=== PATIENT | female | born 1960 | race American Indian/Alaskan Native ===

== ENCOUNTER 2016-12-10 06:51 | Day surgery (SDC) | payer MEDICARE ==
--- NOTE | 2016-12-10 07:31 | Anesthesia Consultation ---
Anesthesia Consult and Med Hx Date of service: 12/10/16 - Airway Anesthetic Teeth Evaluation: Good (multiple missing teeth) ROM Head & Neck: Adequate Mental/Hyoid Distance: Adequate Mallampati Class: Class II Intubation Access Assessment: Probably Good - Pre-Operative Health Status ASA Pre-Surgery Classification: ASA3 Proposed Anesthetic Plan: General - Pulmonary Hx Smoking: No - Cardiovascular System Hx Hypertension: Yes (FOR 20+ YRS, DR. KNOX- PCP) Hx Coronary Artery Disease: (high blood pressure) - Central Nervous System Hx Neuromuscular Disorder: Yes (lupus) Hx Psychiatric Problems: No - Endocrine Hx Insulin Dependent Diabetes: Yes Hx Hyperthyroidism: Yes - Hematic Hx Anemia: Yes Hx Sickle Cell Disease: Yes (TRAIT) - Other Systems Hx Cancer: Yes (LEFT BREAST, DX: 09/2016)
--- NOTE | 2016-12-10 07:32 | Anesthesia Day of Surgery ---
Anesthesia Day of Surgery - Day of Surgery Patient Examined: Yes Patient H&P Reviewed: Yes Patient is NPO: Yes
[2016-12-10] MEDS ORDERED: LACTATED RINGERS 1,000 ML IV SCH (08:00)
[2016-12-10] MEDS ORDERED: VERSED IV NR (08:00)
[2016-12-10] MEDS ORDERED: VANCOMYCIN/NS 1 GM/250 ML 250 ML IV NR (08:00)
[2016-12-10] MEDS ORDERED: PEPCID IV NR (08:00)
[2016-12-10] MEDS ORDERED: NACL 0.9% 1000 ML 1,000 ML ONE ×2 (08:08→10:55)
[2016-12-10] MEDS ORDERED: MARCAINE-EPI 0.5%-1:200,000 INFILTRATI ONE (08:15)
[2016-12-10] MEDS ORDERED: DECADRON ONE ×2 (08:15→08:55)
[2016-12-10] MEDS ORDERED: DIPRIVAN 10 MG/ML IV ONE (08:35)
[2016-12-10] MEDS ORDERED: XYLOCAINE MPF 2% ONE (08:36)
[2016-12-10] MEDS ORDERED: DILAUDID ONE (08:36)
[2016-12-10] MEDS ORDERED: XYLOCAINE 1% 20 mL ONE (08:38)
[2016-12-10] MEDS ORDERED: ZOFRAN ONE (08:55)
[2016-12-10] MEDS ORDERED: NEURONTIN PO NR (09:00)
[2016-12-10] MEDS ORDERED: NACL 0.9% 1000 ML 1,000 ML IV SCH (09:00)
[2016-12-10] MEDS ORDERED: WATER FOR IRRIG STERILE IR ONE (10:01)
[2016-12-10] MEDS ORDERED: METHYLENE BLUE IV ONE (10:01)
[2016-12-10] MEDS ORDERED: NACL P/F VIAL (10 ML) INFILTRATI ONE (10:04)
[2016-12-10] MEDS ORDERED: NEO SYNEPHRINE/NS Syringe(OR USE) IV ONE (10:31)
--- NOTE | 2016-12-10 11:29 | Short Stay Summary ---
Short Stay Documentation Date of service: 12/10/16 - History H&P: obtained from office - Allergies and Medications Current Medications: Allergies Penicillins Adverse Reaction (Severe, Verified 12/10/16 08:24) DIFFICULTY IN BREATHING Sulfa (Sulfonamide Antibiotics) Adverse Reaction (Severe, Verified 12/10/16 08: 24) DIFFICULTY IN BREATHING Home Medications Medication Instructions Recorded Confirmed Last Taken Type Hydroxychloroquine [Plaquenil] 200 mg PO QDAY 11/12/16 12/08/16 12/09/16 History Insulin Detemir [Levemir VIAL] 14 unit SQ QDAY 11/12/16 12/10/16 12/09/16 09:30 History 14 UNITS Lisinopril/Hydrochlorothiazide 1 tab PO QDAY 11/12/16 12/08/16 12/10/16 05:30 History [Zestoretic 20-12.5 mg] Prednisone [predniSONE (Leisa) ER 5 mg PO QDAY 11/12/16 12/08/16 12/10/16 05:30 History TAB] Simvastatin [Zocor TAB] 20 mg PO QHS 11/12/16 12/08/16 12/09/16 History Colchicine [Colcrys] 0.6 mg PO BID 11/17/16 12/08/16 12/09/16 History HYDROcodone/APAP 5-325 [[place] 1 each PO Q6HR PRN #25 tablet 12/10/16 Unknown Rx 5/325] Active Medications Famotidine (Pepcid) 20 mg IV PREOP NR Stop: 12/10/16 23:59 Last Admin: 12/10/16 08:20 Dose: 20 mg Gabapentin (Neurontin) 600 mg PO PREOP NR Stop: 12/10/16 17:00 Last Admin: 12/10/16 08:29 Dose: 600 mg Vancomycin HCl (Vancomycin/Ns 1 Gm/250 Ml) 250 mls @ 167 mls/hr IV PREOP NR PRN Reason: Protocol Stop: 12/10/16 23:59 Last Admin: 12/10/16 08:34 Dose: 167 mls/hr Sodium Chloride (Nacl 0.9% 1000 Ml) 1,000 mls @ 75 mls/hr IV DIRECT MICHEL Last Admin: 12/10/16 08:15 Dose: 75 mls/hr Methylprednisolone Sodium Succinate (Solu-Medrol) 125 mg IV PREOP NR Stop: 12/10/16 23:59 Last Admin: 12/10/16 08:17 Dose: 125 mg Midazolam HCl (Versed) 2 mg IV PREOP NR Stop: 12/10/16 23:59 Last Admin: 12/10/16 08:42 Dose: 2 mg - Brief post op/procedure progress note Date of procedure: 12/10/16 Pre-op diagnosis: Left breast cancer of the upper outer quadrant Post-op diagnosis: same Procedure: Left breast margin revision and sentinel lymph node biopsy Anesthesia: GETA Findings: Scar tissue noted of breast cavity with lateral margin revision performed; left sentinel lymph node biopsy with at least 1 lymph node identified with low counts Surgeon: LUIS ANGEL PAYTON Estimated blood loss: minimal Pathology: list (left lateral breast margin revision, left SLNB) Specimen disposition: to lab Condition: stable - Disposition Condition at discharge: Good Disposition: DISCHARGED TO HOME OR SELFCARE Short Stay Discharge Plan Activity: other (no heavy lifting) Diet: regular Wound: other ( may shower in 24 houirs; no baths, pools or lakes; do not rub or scrub incision) Follow up with: PIERCE KNOX MD [Primary Care Provider] - 7 Days LUIS ANGEL PAYTON MD [Staff Physician] - 7 Days Prescriptions: HYDROcodone/APAP 5-325 [[place] 5/325] 1 each PO Q6HR PRN #25 tablet PRN Reason: Pain
--- NOTE | 2016-12-10 11:40 | Operative Report ---
Operative Report Operative Report: Date of procedure: 12/10/2016 Pre-operative diagnosis: Left breast cancer of the upper outer quadrant with positive lateral margin and findings of microinvasive breast cancer Post-operative diagnosis: Same Procedure name(s): Left lateral breast margin revision of upper outer quadrant breast cancer and sent and left sentinel lymph node biopsy Surgeon: Rosana Sylvester M.D. Anesthesia: Gen. Findings: Scar tissue with fat necrosis noted of the left breast cavity from prior partial mastectomy with left lateral breast margin revision performed. Isotope injected of the left nipple with minimal uptake noted as well as methylene blue dye injected as well with no dye identified the time of surgery. He will counts noted from his lymph node identified. Complications: None Drains: None Disposition: PACU in good condition Indications for operative procedure: This is a 56-year-old lady with newly diagnosed left breast cancer of the upper outer quadrant, initially diagnosed with DCIS and she underwent a left partial mastectomy in October 2016 with findings of microinvasive breast cancer and lateral margin less than 1 mm from ductal carcinoma in situ. Recommendations were to proceed with from left lateral breast margin revision and sentinel lymph node biopsy. Patient wished to proceed with the above. Procedure in detail: Patient was taken to the operating room and was laid supine. Gen. anesthesia was administered. The nipple was injected with radioisotope. Left breast and axilla were prepped and draped in normal sterile operative fashion. Gamma probe was used to identify counts within the axilla with no counts identified and the nipple was then injected with 1 mL of blue dye with 2 mL of sterile normal saline. Minimal counts were noted. A skin incision was then made at the prior left lateral breast skin incision with a 15 blade knife with dissection taken down to the subcutaneous tissues with the aid of the Bovie cautery. Seroma cavity was encountered that was appropriately suctioned. The nipple was massaged. Low counts were identified of the axilla. Procedure first began with performing of left lateral margin revision with Allis clamps placed on the tissue of concern that was appropriately excised using the Bovie cautery, marked and then sent to pathology. Gamma probe was inserted into axilla with 2 areas identified with very low counts that were excised and identified as sentinel lymph node 1 and 2 that was sent to pathology. No blue dye was noted within the axilla. Hemostasis was then obtained using the Bovie cautery. Breast cavity was irrigated and suctioned. The subcutaneous tissues were approximated and closed with interrupted 3-0 Vicryl and skin closed with interrupted 3-0 Vicryl followed by running 4-0 Monocryl and skin affix. The patient was awakened from anesthesia without any complication and transferred to PACU in good condition.
--- NOTE | 2016-12-10 12:24 | Post Anesthesia Evaluation ---
- Post Anesthesia Evaluation Patient Participated: Yes Airway Patent: Yes Stable Respiratory Function: Yes Nausea/Vomiting: No Temp > 96.8F: Yes Pain Manageable: Yes Adequeate Hydration: Yes Anesthesia Complications: No
[2016-12-10 15:00] VITALS: BP 136/74
--- NOTE | 2016-12-11 13:44 | Progress Note ---
Subjective Date of service: 12/11/16 Interval history: 1st POD after left breast surgery Patient has been discharged by the surgeon in the good condition
== END 2016-12-10 14:15 | disposition home or self-care (01) ==
LOC: OR 06:51
PROVIDERS: ATTEND Surgery
DX: C50.412 Malignant neoplasm of upper-outer quadrant of left female breast (principal); N64.1 Fat necrosis of breast; I10 Essential (primary) hypertension; E03.9 Hypothyroidism, unspecified; D57.3 Sickle-cell trait; E11.22 Type 2 diabetes mellitus with diabetic chronic kidney disease; N18.4 Chronic kidney disease, stage 4 (severe); M10.471 Other secondary gout, right ankle and foot; E11.40 Type 2 diabetes mellitus with diabetic neuropathy, unspecified; Z83.3 Family history of diabetes mellitus; Z90.12 Acquired absence of left breast and nipple; Z84.1 Family history of disorders of kidney and ureter; Z82.49 Family history of ischemic heart disease and other diseases of the circulatory system; Z80.3 Family history of malignant neoplasm of breast
CPT/HCPCS: 11404; 11406; 38525; 64450; 78800; 82962; 88305; 88307; 88341; 88342; A9541; J1100; J1170; J2250; J2370; J2405; J2704; J2930; J3370; J7030; Q9968; 88333

== ENCOUNTER 2020-10-08 08:19 | Outpatient (CLI) | payer MEDICARE ==
--- NOTE | 2020-10-08 09:42 | Mammography Report ---
DIGITAL SCREENING MAMMOGRAM WITH TOMOSYNTHESIS WITH CAD, 10/08/2020 CLINICAL INFORMATION / INDICATION: Routine Screening Mammography. TECHNIQUE: Digital bilateral 2D and 3D mammography with tomosynthesis was obtained in the craniocaud al and mediolateral oblique projections. Computer-Aided Detection (CAD) analysis was used for interp retation of this study. COMPARISON: 10/07/2019, 09/13/2018 FINDINGS: Breast Density: There are scattered areas of fibroglandular density. No dominant mass, suspicious calcifications, or architectural distortion in either breast. There are stable postoperative changes posteriorly along the upper outer quadrant of the left breast. IMPRESSION: No mammographic evidence of malignancy. Follow up recommendation: Routine yearly BI-RADS Category 2: Benign. A "normal" or negative report should not discourage follow up or biopsy of a clinically significant f inding. A written summary of these findings will be mailed to the patient. The patient will be entered into a mammography reporting system which will generate a reminder letter for the patient's next appointmen t at the appropriate interval. The [employer] recommends yearly mammograms starting at age 40 and continuing as l jane as a woman is in good health. Breast MRI is recommended for women with an approximate 20-25% or greater lifetime risk of breast cancer, including women with a strong family history of breast or ova allegra cancer or who have been treated for Hodgkin's disease. Signer Name: Edmond Dorado MD Signed: 10/08/2020 9:37 AM Workstation Name: [email or web address]
== END 2020-10-08 08:20 | disposition home or self-care (01) ==
LOC: SPVWC 08:19
PROVIDERS: ATTEND Surgery
DX: Z12.31 Encounter for screening mammogram for malignant neoplasm of breast (principal)
CPT/HCPCS: 77063; 77067

== ENCOUNTER 2021-11-08 08:53 | Outpatient (CLI) | payer MEDICARE ==
--- NOTE | 2021-11-08 18:05 | Mammography Report ---
DIGITAL SCREENING MAMMOGRAM WITH CAD, 11/08/2021 CLINICAL INFORMATION / INDICATION: Routine screening mammography. TECHNIQUE: Digital bilateral 2D mammography was obtained in the craniocaudal and mediolateral obliqu e projections. This examination was interpreted with the benefit of Computer-Aided Detection analysis . COMPARISON: 10/08/2020, 10/07/2019 FINDINGS: Breast Density: There are scattered areas of fibroglandular density. No dominant mass, suspicious calcifications, or architectural distortion in either breast. Postlumpectomy changes are again noted in the upper outer left breast. Prominent right axillary lymph node is present unchanged for multiple older mammograms. Overall, no s ignificant interval change in the appearance of the mammogram. IMPRESSION: No mammographic evidence of malignancy. Follow up recommendation: Routine yearly BI-RADS Category 2: Benign. A "normal" or negative report should not discourage follow up or biopsy of a clinically significant f inding. A written summary of these findings will be mailed to the patient. The patient will be entered into a mammography reporting system which will generate a reminder letter for the patient's next appointmen t at the appropriate interval. The [employer] recommends yearly mammograms starting at age 40 and continuing as l jane as a woman is in good health. Breast MRI is recommended for women with an approximate 20-25% or greater lifetime risk of breast cancer, including women with a strong family history of breast or ova allegra cancer or who have been treated for Hodgkin's disease. Signer Name: Nataliia Perkins MD Signed: 11/08/2021 6:00 PM Workstation Name: [id number]
== END 2021-11-08 08:54 | disposition home or self-care (01) ==
LOC: SPVWC 08:53
PROVIDERS: ATTEND Surgery
DX: Z12.31 Encounter for screening mammogram for malignant neoplasm of breast (principal); N64.89 Other specified disorders of breast
CPT/HCPCS: 77067